=== PATIENT | female | born 1930 | race Caucasian/White ===

== ENCOUNTER 2020-05-15 17:42 | Inpatient (IN) ==
[2020-05-16] MEDS ORDERED: Aspirin Enteric Coated 81 MG Tablet PO SCH (09:00)
[2020-05-16] MEDS: *HR* Enoxaparin 40 MG/0.4 ML SYRINGE SQ SCH (13:10)
[2020-05-16] MEDS ORDERED: Naloxone 0.4 MG/ML INJ IVP PRN (22:43)
[2020-05-16] MEDS ORDERED: *HR* HYDROcodone/Acet 5/325 mg TABLET PO PRN (22:43)
[2020-05-16] MEDS ORDERED: polyethylene glycoL 3350 17 GM POWD.PACK PO PRN (22:56)
[2020-05-16] MEDS: Sennosides/Docusate Sodium TABLET PO SCH (23:44)
[2020-05-17] MEDS: *HR* Enoxaparin 40 MG/0.4 ML SYRINGE SQ SCH (06:00)
[2020-05-17 06:26] LABS: Hematocrit 34.3 % (35.3-44.9); Hemoglobin 11.7 g/dL (11.5-15.4); Mean Corpuscular HGB Conc 34.1 g/dL (31.6-35.5); Mean Corpuscular Hemoglobin 29.9 pg (28.0-33.3); Mean Corpuscular Volume 87.7 fL (83.0-100.0); Mean Platelet Volume 12.6 fL (9.4-12.4); Red Blood Count 3.91 M/mcL (3.82-4.97); Red Cell Distribution Width 14.1 % (11.5-14.5); White Blood Count 9.1 K/mcL (4.3-11.1)
[2020-05-17 06:42] LABS: BUN/Creatinine Ratio 26 (6-26); Blood Urea Nitrogen 22 mg/dL (8-23); Calcium 9.9 mg/dL (8.6-10.3); Carbon Dioxide 29 mEq/L (23-29); Chloride 96 mEq/L (98-107); Glucose 169 mg/dL (70-105); Osmolality,Calculated 283 (280-300); Potassium 4.1 mEq/L (3.5-5.1); Sodium 133 mEq/L (136-145); eGFR For African Americans > 60 (> 60); eGFR For Non-African Americans > 60 (> 60)
[2020-05-17 06:50] LABS: Platelet Count 63 K/mcL (140-400)
[2020-05-17] MEDS: Aspirin Enteric Coated 81 MG Tablet PO SCH (08:48)
[2020-05-17] MEDS: DilTIAZem CD (24hr) 180 MG CAP.ER.24H PO SCH (08:48)
[2020-05-17] MEDS: Sennosides/Docusate Sodium TABLET PO SCH ×2 (08:48→22:18)
[2020-05-18] MEDS: *HR* Enoxaparin 40 MG/0.4 ML SYRINGE SQ SCH (05:51)
[2020-05-18] MEDS: Sennosides/Docusate Sodium TABLET PO SCH ×2 (08:04→20:46)
[2020-05-18] MEDS: DilTIAZem CD (24hr) 180 MG CAP.ER.24H PO SCH (08:05)
[2020-05-18] MEDS: Aspirin Enteric Coated 81 MG Tablet PO SCH (08:05)
[2020-05-19] MEDS: *HR* Enoxaparin 40 MG/0.4 ML SYRINGE SQ SCH (05:11)
[2020-05-19] MEDS: Sennosides/Docusate Sodium TABLET PO SCH ×2 (07:30→20:37)
[2020-05-19] MEDS: Aspirin Enteric Coated 81 MG Tablet PO SCH (07:31)
[2020-05-19] MEDS: DilTIAZem CD (24hr) 180 MG CAP.ER.24H PO SCH (07:31)
[2020-05-19] MEDS: Acetaminophen 325 MG TABLET PO PRN (20:38)
[2020-05-20] MEDS: *HR* Enoxaparin 40 MG/0.4 ML SYRINGE SQ SCH (05:59)
[2020-05-20] MEDS: DilTIAZem CD (24hr) 180 MG CAP.ER.24H PO SCH (08:54)
[2020-05-20] MEDS: Aspirin Enteric Coated 81 MG Tablet PO SCH (08:54)
[2020-05-20] MEDS: Sennosides/Docusate Sodium TABLET PO SCH ×2 (08:54→20:50)
[2020-05-20] MEDS: Artificial Tears SOLN 15 ML BOTTLE BOTH EYES PRN ×2 (12:15→17:11)
[2020-05-20] MEDS: Acetaminophen 325 MG TABLET PO PRN (20:53)
[2020-05-21] MEDS: *HR* Enoxaparin 40 MG/0.4 ML SYRINGE SQ SCH (05:44)
[2020-05-21] MEDS: Sennosides/Docusate Sodium TABLET PO SCH ×2 (08:50→20:14)
[2020-05-21] MEDS: DilTIAZem CD (24hr) 180 MG CAP.ER.24H PO SCH (08:51)
[2020-05-21] MEDS: Aspirin Enteric Coated 81 MG Tablet PO SCH (08:51)
[2020-05-21] MEDS: Artificial Tears SOLN 15 ML BOTTLE BOTH EYES PRN (17:27)
[2020-05-21] MEDS: Acetaminophen 325 MG TABLET PO PRN (20:17)
[2020-05-22] MEDS: *HR* Enoxaparin 40 MG/0.4 ML SYRINGE SQ SCH (05:46)
[2020-05-22 07:35] VITALS: BP 145/69
[2020-05-22] MEDS: Sennosides/Docusate Sodium TABLET PO SCH (08:42)
[2020-05-22] MEDS: DilTIAZem CD (24hr) 180 MG CAP.ER.24H PO SCH (08:42)
[2020-05-22] MEDS: Aspirin Enteric Coated 81 MG Tablet PO SCH (08:43)
[2020-05-22] MEDS: Artificial Tears SOLN 15 ML BOTTLE BOTH EYES PRN (08:44)
== END 2020-05-22 12:26 | disposition home or self-care (01) | DRG 561 ==
LOC: INPGRE 05-16 12:07
PROVIDERS: ADMIT Family Medicine; ATTEND Family Medicine